=== PATIENT | male | born 1990 | race Caucasian/White ===

== ENCOUNTER 2016-12-30 16:02 | Emergency (ER) | payer SELFPAY ==
[2016-12-30] MEDS ORDERED: ZIPRASIDONE MESYLATE INJ/PF 20 MG SDV IM ONE (16:42)
--- NOTE | 2016-12-30 16:47 | ER Document Report ---
ED General <ERNESTINE ESPINOZA - Last Filed: 12/31/16 05:45> - General Time seen by provider: 16:44 Mode of Arrival: Ambulatory Information source: Law Enforcement TRAVEL OUTSIDE OF THE [place] IN LAST 30 DAYS: No <BLAKE HIRSCH - Last Filed: 12/31/16 23:11> - General Chief Complaint: Psych Problem Stated Complaint: IVC W/PAPERS Notes: 26-year-old male brought in on IVC paperwork reporting that he been running around in boxer shorts seem to be hearing voices and making motions to his wrist with razor blade. Patient had to be tackled by law enforcement to be brought into emergency department and after handcuffs were removed here the patient did strike personnel here before being secured to the bed. Patient states the word 10 but is otherwise nonverbal. No other history is available. Review of records shows no documentation of prior psychiatric problems. Physical Exam: General: Alert, uncooperative with exam but call while secured to the stretcher HEENT: Normocephalic. Superficial 1.5 cm abrasion over left eyelid but no active bleeding. PERRLA. Extraocular movements intact. Discs sharp no papilledema slight conjunctival injection on the left. Tympanic membranes clear. No otorhinorrhea Oropharynx has moist mucous membranes small amount of blackish material to lips Neck: Supple. Non-tender. No JVD Respiratory: No respiratory distress. Clear and equal breath sounds bilaterally. Cardiovascular: Regular rate and rhythm. Abdominal: Normal Inspection. Soft, non-tender. No distension. Normal Bowel Sounds. uncircumcised male no lesions All extremity is warm with 2+ pulses no cyanosis no edema 1 cm intact blister noted to bottom of right great toe Neurological: Harish 15. Patient does not cooperate with formal neurologic testing Psychological: Unable to assess affect are mood Skin: Warm. Dry. Normal color. (BLAKE HIRSCH) - Related Data Allergies/Adverse Reactions: No Known Allergies Allergy (Verified 03/08/16 04:47) Past Medical History - Social History Smoking Status: Unknown if Ever Smoked Family History: Other - Unobtainable due to altered mental status - Medical History Medical History: Other - Unobtainable due to altered mental status - Immunizations Hx Diphtheria, Pertussis, Tetanus Vaccination: Yes <BLAKE HIRSCH - Last Filed: 12/31/16 23:11> Review of Systems - Review of Systems -: Yes ROS unobtainable due to patient's medical condition <BLAKE HIRSCH - Last Filed: 12/31/16 23:11> Course - Laboratory Result Diagrams: 12/30/16 16:20 12/30/16 16:20 <ERNESTINE ESPINOZA - Last Filed: 12/31/16 05:45> - Laboratory Result Diagrams: 12/31/16 09:25 12/31/16 09:25 <BLAKE HIRSCH - Last Filed: 12/31/16 23:11> - Re-evaluation Re-evalutation: 12/31/16 01:37 Patient became belligerent and was attempting to spit on staff. Violent restraints were placed on the patient and he was given Ativan 2 mg IM as well as C when necessary order Geodon. Violent restraint order was given for patient and staff safety. 12/31/16 05:45 After Geodon and Ativan, the patient was more cooperative. We will try to remove the restraints if he continues as such. By mouth fluids were encouraged given that the patient has some mild dehydration. Given the previously elevated white blood cell count, repeat blood work will be ordered for this morning. On repeat exam there are no meningeal signs, and patient had a previously negative head CT. Patient is afebrile. Question drug toxidrome, no obvious encephalopathy. (ERNESTINE ESPINOZA) - Vital Signs Vital signs: Temp Pulse Resp BP Pulse Ox 98.1 F 98 18 149/91 H 97 12/31/16 18:36 12/31/16 18:36 12/31/16 18:36 12/31/16 18:36 12/31/16 18:36 - Laboratory Laboratory results interpreted by me: 12/30/16 12/30/16 12/30/16 16:20 16:20 16:20 WBC 23.6 H Seg Neutrophils % Seg Neuts % (Manual) 93 H Lymphocytes % Lymphocytes % (Manual) 0 L Monocytes % (Manual) 0 L Absolute Neutrophils Abs Neuts (Manual) 22.7 H Abs Monocytes (Manual) 0.0 L Carbon Dioxide 21 L Glucose AST 90 H Creatine Kinase CK-MB (CK-2) Urine Protein 30 H Urine Ketones 80 H Urine Urobilinogen 2.0 H Urine Ascorbic Acid 40 H Salicylates < 1.0 L Acetaminophen < 10 L 12/31/16 12/31/16 12/31/16 09:25 09:25 09:25 WBC 12.8 H Seg Neutrophils % 81.1 H Seg Neuts % (Manual) Lymphocytes % 9.9 L Lymphocytes % (Manual) Monocytes % (Manual) Absolute Neutrophils 10.4 H Abs Neuts (Manual) Abs Monocytes (Manual) Carbon Dioxide 20 L Glucose 71 L AST 82 H Creatine Kinase 1249 H CK-MB (CK-2) 17.60 H Urine Protein Urine Ketones Urine Urobilinogen Urine Ascorbic Acid Salicylates Acetaminophen Discharge <ERNESTINE ESPINOZA H - Last Filed: 12/31/16 05:45> <BLAKE HIRSCH - Last Filed: 12/31/16 23:11> - Discharge Clinical Impression: Altered mental status Qualifiers: Altered mental status type: disorientation Qualified Code(s): R41.0 - Disorientation, unspecified Psychosis Qualifiers: Psychosis type: unspecified psychosis type Qualified Code(s): F29 - Unspecified psychosis not due to a substance or known physiological condition Condition: Fair Disposition: PSYCH HOSP/UNIT
[2016-12-30 17:01] LABS: HEMATOCRIT 47.3 % (37.9-51.0); RED BLOOD COUNT 5.06 10^6/uL (4.35-5.55); WHITE BLOOD COUNT 23.6 10^3/uL (4.0-10.5)
[2016-12-30 17:02] LABS: HGB HCT DIFFERENCE 0.7; MEAN CORPUSCULAR HEMOGLOBIN 31.5 pg (27.0-33.4); MEAN CORPUSCULAR HGB CONC 33.7 g/dL (32.0-36.0); MEAN CORPUSCULAR VOLUME 94 fl (80-97); RED CELL DISTRIBUTION WIDTH 13.4 % (11.5-14.0)
[2016-12-30 17:17] LABS: ALANINE AMINOTRANSFERASE 51 U/L (21-72); ALCOHOL < 10 mg/dL (NONE DETECTED); ALKALINE PHOSPHATASE 102 U/L (38-126); ANION GAP 19 (5-19); ASPARTATE AMINO TRANSFERASE 90 U/L (17-59); BILIRUBIN,TOTAL 0.9 mg/dL (0.2-1.3); BLOOD UREA NITROGEN 18 mg/dL (7-20); CALCIUM 10.1 mg/dL (8.4-10.2); CARBON DIOXIDE 21 mmol/L (22-30); CHLORIDE 101 mmol/L (98-107); CREATININE RESULT 0.84 mg/dL (0.52-1.25); GLUCOSE 95 mg/dL (75-110); POTASSIUM 3.9 mmol/L (3.6-5.0); SODIUM 141.1 mmol/L (137-145); TOTAL PROTEIN 7.7 g/dL (6.3-8.2)
[2016-12-30 17:26] LABS: APPEARANCE,URINE SLIGHTLY-CLOUDY; BILIRUBIN,URINE NEGATIVE (NEGATIVE); GLUCOSE, URINE NEGATIVE (NEGATIVE); KETONES,URINE 80 mg/dL (NEGATIVE); LEUKOCYTE ESTERASE,URINE NEGATIVE (NEGATIVE); NITRITE,URINE NEGATIVE (NEGATIVE); PROTEIN,URINE 30 mg/dL (NEGATIVE); URINE SPECIFIC GRAVITY 1.023
[2016-12-30 17:33] LABS: BAND NEUTROPHILS % (MANUAL) 3 % (3-5); BASOPHILS % (MANUAL) 0 % (0-2); EOSINOPHILS % (MANUAL) 0 % (0-6); LYMPHOCYTES % (MANUAL) 0 % (13-45); TOTAL CELLS COUNTED 100
[2016-12-30 17:34] LABS: TOXIC GRANULATION 2+
[2016-12-30 17:40] LABS: URINE BARBITURATES SCREEN NEGATIVE; URINE METHADONE SCREEN NEGATIVE; URINE OPIATES LOW NEGATIVE; URINE PHENCYCLIDINE SCREEN NEGATIVE
--- NOTE | 2016-12-30 17:44 | PSYCHOLOGICAL NOTE ---
Psych Note - Psych Note Psych Note: Patient presented to [facility] ED on IVC paperwork reporting that he been running around in boxer shorts seem to be hearing voices and making motions to his wrist with razor blade. Patient had to be tackled by law enforcement to be brought into emergency department and after handcuffs were removed here the patient did strike personnel here before being secured to the bed. Patient states the word 10 but is otherwise nonverbal. Patient is currently in 4 point restraints. When asked if the patient knows why he is in [facility] ED he stated "to talk with you." Patient continued to disclose that "10 thinks your cute.... I think you are cute." Patient was asked if he had a difficult day and patient responded "10 wants to f you... I want to f* you." Clinician reminded the patient what he is saying is not appropriate and asked the patient is today was the anniversary of his brother's . The patient stated the he killed his brother. When asked to clarify the patient stated "I killed him with my bear hands." Clinician asked if the patient was there when his brother he stated " I killed him because he is gregorio." Patient is alert and orientated to person place. Mood is currently dysphoric with flat affect. Clinician notes patient has tears in his eyes at times during evaluation. Patient would not answer questions on suicidal and homicidal ideation. Patient is responding to internal stimuli observed by watching his eyes rapidly moving around the room, in speaking of a third constitution party "10". Thought processes are currently impaired. Conversational speech was halting. No eye contact was made, patient in restraints and staring towards ceiling. Intellectual ability to be average range. Attention and concentration are poor. Insight, judgment, impulse control are currently impaired. 298.9 (F29) Unspecified Psychotic Disorder Impression\\plan: Patient is recommended to continue under IVC. Patient's cognitive functioning is currently impaired due to psychosis unknown origin. Patient is a danger to himself and others. Patient will need to be reevaluated.
[2016-12-30] MEDS ORDERED: ZIPRASIDONE MESYLATE INJ/PF 20 MG SDV IM PRN (19:42)
[2016-12-31] MEDS ORDERED: LORAZEPAM INJ 2 MG/1 ML VIAL IM ONE (01:01)
[2016-12-31 09:34] LABS: ABSOLUTE BASOPHILS # (AUTO) 0.1 10^3/uL (0.0-0.2); ABSOLUTE EOSINOPHILS # (AUTO) 0.1 10^3/uL (0.0-0.6); ABSOLUTE LYMPHOCYTES (AUTO) 1.3 10^3/uL (0.5-4.7); ABSOLUTE MONOCYTES (AUTO) 1.1 10^3/uL (0.1-1.4); ABSOLUTE NEUT (AUTO) 10.4 10^3/uL (1.7-8.2); BASOPHILS % (AUTO) 0.4 % (0-2); EOSINOPHILS % (AUTO) 0.4 % (0-6); HEMATOCRIT 47.7 % (37.9-51.0); HEMOGLOBIN 16.2 g/dL (13.5-17.0); HGB HCT DIFFERENCE 0.9; LYMPHOCYTES % (AUTO) 9.9 % (13-45); MEAN CORPUSCULAR HEMOGLOBIN 32.1 pg (27.0-33.4); MEAN CORPUSCULAR VOLUME 94 fl (80-97); MONOCYTES % (AUTO) 8.2 % (3-13); RED BLOOD COUNT 5.06 10^6/uL (4.35-5.55); RED CELL DISTRIBUTION WIDTH 13.4 % (11.5-14.0); SEGMENTED NEUTROPHILS % (AUTO) 81.1 % (42-78); WHITE BLOOD COUNT 12.8 10^3/uL (4.0-10.5)
--- NOTE | 2016-12-31 09:35 | ER Document Report ---
Doctor's Note Notes: 12/31/16 09:30 Patient seen and evaluated at the bedside. Medically stable. He is more cooperative and out of her restraints since this morning. He took his psychiatric medications yesterday. Evaluated today with no active signs of withdrawal. No other complaints at this time. Repeat labs are pending. Awaiting psych recs. Patient's leukocytosis is resolving. He does have slight rhabdo with a CK of 1200, but no kidney involvement. Will provide 2 L IV fluids and recheck the CPK in the morning.
--- NOTE | 2016-12-31 09:49 | PSYCHOLOGICAL NOTE ---
Psych Note - Psych Note Psych Note: Patient presented to [facility] ED on IVC paperwork reporting that he been running around in boxer shorts seem to be hearing voices and making motions to his wrist with razor blade. Patient had to be tackled by law enforcement to be brought into emergency department and after handcuffs were removed here the patient did strike personnel here before being secured to the bed. Patient states the word 10 but is otherwise nonverbal. Patient was removed from 4-point restraints. Patient is compliant and willing to cooperate. Patient disclosed he has no memory from previous day. He does acknowledge yesterday was the anniversary of his brother's , however unwilling to further explore this. When asked patient has substance abuse issues for his alcoholic patient states he does not know he doesn't remember. Clinician spoke with patient's father, Phill Coleman [phone], he disclosed that he does not believe this is the first time his son has had an issue like this. However he is unable to confirm this. He continued disclosed the family has history of addictive behaviors of alcohol and substances. He disclosed that the patient's older brother overdosed 1 year ago yesterday. He denies the patient lives with his brother when this occurred. He continued disclosed that the patient has a history of anxiety, depression, alcoholism and night terrors. Disclose in the past he received BuSpar at night to really work to calm him. Patient's father states the patient is very driven into be classified as a workaholic. 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 Patient's father has concerns that patient has pushed himself when he just snapped. Patient is alert and orientated to person place time and circumstance. Patient admits to no memory from previous day. Patient's mood is for the flat affect. Patient still will not verbalize his thoughts and suicidal and homicidal ideation. Patient does not appear to be responding to internal stimuli at this time; No delusions are noted. Thought process is currently organized and linear. Conversational speech is low. Eye contact was poor. Intellectual abilities appear to be within average range. Attention and concentration are fair. Insight, judgment, poor. 298.9 (F29) Unspecified Psychotic Disorder Impression\plan: Patient is recommended to continue under IVC. Patient is just becoming aware and orientated. Patient is having difficulty verbalizing his thoughts on suicidal and homicidal ideation. Patient shuts down when discussing his brother's . There is concern for substance abuse history as well as mental health history. Patient will need to be reevaluated.
[2016-12-31 09:51] LABS: ALANINE AMINOTRANSFERASE 57 U/L (21-72); ALBUMIN 4.7 g/dL (3.5-5.0); ALKALINE PHOSPHATASE 112 U/L (38-126); ANION GAP 17 (5-19); ASPARTATE AMINO TRANSFERASE 82 U/L (17-59); BILIRUBIN,TOTAL 1.1 mg/dL (0.2-1.3); BLOOD UREA NITROGEN 14 mg/dL (7-20); CARBON DIOXIDE 20 mmol/L (22-30); CHLORIDE 104 mmol/L (98-107); CREATINE KINASE 1249 U/L (55-170); CREATININE RESULT 0.69 mg/dL (0.52-1.25); GLUCOSE 71 mg/dL (75-110); TOTAL PROTEIN 7.2 g/dL (6.3-8.2)
--- NOTE | 2016-12-31 11:18 | EKG REPORT ---
SEVERITY:- ABNORMAL ECG - SINUS RHYTHM PROBABLE LEFT VENTRICULAR HYPERTROPHY : Confirmed by: Chichi Trinidad 31-Dec-2016 11:17:45
[2016-12-31] MEDS: DIVALPROEX SODIUM 500 MG TAB.SR.24H PO SCH (18:36)
[2016-12-31] MEDS: NORMAL SALINE 1000 ML 1,000 ML IV PRN ×2 (20:21→21:56)
[2016-12-31] MEDS: BUSPIRONE HCL 10 MG TABLET PO SCH (21:55)
[2017-01-01] MEDS: DIVALPROEX SODIUM 500 MG TAB.SR.24H PO SCH ×2 (09:10→17:53)
--- NOTE | 2017-01-01 11:09 | ER Document Report ---
Doctor's Note Notes: 01/01/17 11:05 Medical rounds: Chart reviewed and patient interviewed briefly. Patient denies somatic complaints. He is alert, oriented, and coherent. Vital signs are satisfactory. Laboratory values satisfactory. He remains medically stable pending reevaluation by psych.
--- NOTE | 2017-01-01 16:12 | PSYCHOLOGICAL NOTE ---
Psych Note - Psych Note Psych Note: Patient presented to [facility] ED on IVC paperwork reporting that he been running around in boxer shorts seem to be hearing voices and making motions to his wrist with razor blade. Patient had to be tackled by law enforcement to be brought into emergency department and after handcuffs were removed here the patient did strike personnel here before being secured to the bed. Patient states the word 10 but is otherwise nonverbal. Check-In Patient states that he is still unable to recall what happened. When asked if he would be ready to discuss why, the patient stated no. When asked if the patient would talk about his brother, the patient stated "no ma'am." . 298.9 (F29) Unspecified Psychotic Disorder Impression\\plan: Patient is recommended to continue under IVC. Patient is still demonstrating dysphoric mood with flat affect and catatonia-like behaviours such as; patient has laid in bed without moving for extended periods of time. Patient does not engage in any interaction with staff members and has not attempted to turn on the TV. Patient responds minimally with one or too words only; at times with no response. Patient is recommended for inpatient treatment. Dr. Pacheco was consulted on care and management of this patient may: Attending physician is in agreement with recommendations and disposition.
[2017-01-01] MEDS: BUSPIRONE HCL 10 MG TABLET PO SCH (22:07)
[2017-01-02] MEDS: DIVALPROEX SODIUM 500 MG TAB.SR.24H PO SCH (10:00)
--- NOTE | 2017-01-02 10:31 | ER Document Report ---
Doctor's Note Notes: 01/02/17 10:30 Medical rounds: Chart reviewed and patient interviewed briefly. Patient verbalizes no somatic complaints. Vital signs remain stable, satisfactory. Psychosocial team is working on transfer to higher level of care, hopefully this will occur today. Patient remains medically stable.
--- NOTE | 2017-01-02 11:21 | ER Document Report ---
Doctor's Note Notes: 01/02/17 11:19 Reevaluation: Patient has been accepted for transfer to [facility] and transportation is in route. He remains medically stable.
[2017-01-02 12:55] VITALS: BP 130/76
--- NOTE | 2017-01-02 15:22 | PSYCHOLOGICAL NOTE ---
Psych Note - Psych Note Psych Note: Patient presented to [facility] ED on IVC paperwork reporting that he been running around in boxer shorts seem to be hearing voices and making motions to his wrist with razor blade. Patient had to be tackled by law enforcement to be brought into emergency department and after handcuffs were removed here the patient did strike personnel here before being secured to the bed. Patient states the word 10 but is otherwise nonverbal. Check-In Patient is able to identify that he is in [facility] however is unable to remember the exact date. Clinician provided current date as 01/02/2017 and acidosis any significance to the patient. Patient was able state that his birthday was in about 9 days and stated that the anniversary of his brother's was 2 days ago. Patient confirms that he was very close with his brother. When asked about substance abuse patient became noticeably nervous reduced in communication , started moving eyes around the room. Clinician attempted to calm the patient reminding patient that this was not legal questions, at the clinician is trying to identify patient's level of need for services. When asked about the bottle of urine in his pack, patient stated that he did not pack the backpack so has no knowledge of what is in it. Patient denies wanting to harm or kill himself. Patient's [id number], Gerard [phone], Attempted call [phone]; left message. Unspecified Psychotic Disorder Impression\plan: Patient was accepted to [facility]. Transportation will occur today.
== END 2017-01-02 12:10 ==
LOC: ER 16:02
DX: F29 Unspecified psychosis not due to a substance or known physiological condition (principal); R41.0 Disorientation, unspecified; E86.0 Dehydration; S90.421A Blister (nonthermal), right great toe, initial encounter; S00.212A Abrasion of left eyelid and periocular area, initial encounter; X58.XXXA Exposure to other specified factors, initial encounter; D72.829 Elevated white blood cell count, unspecified; Z78.1 Physical restraint status
CPT/HCPCS: 93005; 99285; 96372; 96360; 96361; 36415; 82553; 80307 ×4; 82550; 85025; 80053; 81001; 70450; 93010; J3486